=== PATIENT | male | born 2005 | race Two or more races ===

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

== ENCOUNTER 2024-04-24 09:32 | Emergency (ER) | payer MEDICAID ==
[2024-04-24 09:53] VITALS: O2SAT 100
--- NOTE | 2024-04-24 10:06 | ED Physician Documentation ---
History of Present Illness - Stated complaint Stated Complaint: CHEST PX,POSS SYNCOPAL EPISODE - Chief complaint Chief Complaint: Neuro - History obtained from History obtained from: Patient - History of Present Illness Timing: Today Pain level max: 5 Pain level now: 5 - Additonal information Additional information: Patient is a 19-year-old female who presents to the emergency department with anterior chest pain. Worse with movement, especially moving her arms. Better with remaining still. Has not taken anything for pain. She states that she went to work today, at work she had an intense sensation of pain when she was moving her arms, felt lightheaded, dizzy and her vision went "black". She did not fall. Did not strike her head. She states currently she is just having anterior chest wall pain. No leg pain, calf pain, recent surgery, history of blood clots. No change with eating or drinking. No recent illnesses. Review of Systems Constitutional: denies: Fever, Chills Cardiac: denies: Palpitations Respiratory: denies: Dyspnea, Cough GI: denies: Vomiting, Diarrhea Skin: denies: Rash Musculoskeletal: denies: Neck pain, Back pain Neurologic: denies: Focal weakness, Numbness, Headache PD PAST MEDICAL HISTORY - Past Medical History Past Medical History: No - Past Surgical History Past Surgical History: Yes General: Colonoscopy - Present Medications Home Medications: Ambulatory Orders Medication Instructions Recorded Confirmed No Known Home Medications 04/24/24 04/24/24 - Allergies Allergies/Adverse Reactions: Allergies Allergy/AdvReac Type Severity Reaction Status Date / Time No Known Drug Allergies Allergy Verified 04/24/24 09:45 - Social History Does the pt smoke?: No Smoking Status: Never smoker Does the pt drink ETOH?: No Does the pt have substance abuse?: No - Immunizations Immunizations are current?: Yes - POLST Patient has POLST: No PD ED PE NORMAL - Vitals Vital signs reviewed: Yes - General General: Alert and oriented X 3, No acute distress - HEENT HEENT: PERRL, Moist mucous membranes - Neck Neck: Supple, no meningeal sign, No bony TTP, No JVD, No bruit - Cardiac Cardiac: RRR, No murmur, Strong equal pulses - Respiratory Respiratory: No respiratory distress, Clear bilaterally - Abdomen Abdomen: Soft, Non tender, Non distended - Back Back: No CVA TTP, No spinal TTP - Derm Derm: Warm and dry - Extremities Extremities: No edema, No calf tenderness / cord - Neuro Neuro: Alert and oriented X 3 - Psych Psych: Normal mood, Normal affect - Free text exam Free text exam: Tender to palpation across the anterior chest wall, mainly at the costochondral Junction, reproduces her pain. No crepitus. No ecchymosis. Results - Vitals Vitals: Vital Signs - 24 hr 04/24/24 04/24/24 04/24/24 09:37 09:59 11:23 Temperature 36.1 C L 36.2 C L Heart Rate 64 74 82 Respiratory 20 25 H 16 Rate Blood Pressure 102/58 L 105/72 O2 Saturation 100 100 100 Oxygen O2 Source Room air - EKG (time done) 0949 EKG releavant findings:: EKG personally interpreted by author of this note. Relevant findings are: Rate: Rate (enter#) (59) Rhythm: NSR [place]: Normal Intervals: Normal [place] QRS: Normal Ischemia: Normal ST segments - Labs Labs: Laboratory Tests 04/24/24 04/24/24 04/24/24 09:43 10:00 10:00 WBC 5.8 RBC 4.58 Hgb 9.9 L Hct 33.3 L MCV 72.7 L MCH 21.6 L MCHC 29.7 L RDW 15.7 H Plt Count 347 MPV 9.0 Neut # (Auto) 3.6 Lymph # (Auto) 1.6 [place] # (Auto) 0.4 Eos # (Auto) 0.1 Baso # (Auto) 0.1 Absolute Nucleated RBC 0.00 Nucleated RBC % 0.0 Sodium 133 L Potassium 4.4 Chloride 104 Carbon Dioxide 26 Anion Gap 3.0 L BUN 12 Creatinine 0.6 Estimated GFR (MDRD) 127 Glucose 98 POC Whole Bld Glucose 79 Calcium 9.4 Total Bilirubin 0.7 AST 19 ALT 14 Alkaline Phosphatase 46 Troponin I High Sens < 2.3 L Total Protein 7.1 Albumin 4.5 Globulin 2.6 Albumin/Globulin Ratio 1.7 Lipase 18 Serum HCG, Qual 04/24/24 10:00 WBC RBC Hgb Hct MCV MCH MCHC RDW Plt Count MPV Neut # (Auto) Lymph # (Auto) [place] # (Auto) Eos # (Auto) Baso # (Auto) Absolute Nucleated RBC Nucleated RBC % Sodium Potassium Chloride Carbon Dioxide Anion Gap BUN Creatinine Estimated GFR (MDRD) Glucose POC Whole Bld Glucose Calcium Total Bilirubin AST ALT Alkaline Phosphatase Troponin I High Sens Total Protein Albumin Globulin Albumin/Globulin Ratio Lipase Serum HCG, Qual NEGATIVE - Rads (name of study) cxr Relevant Findings:: Final report received, See rad report PD Medical Decision Making - ED course Complexity details: reviewed results, re-evaluated patient, considered diffe rential (No ST elevation [place], no aortic dissection, no PE, no tension pneumothorax, no aortic aneurysm), d/w patient ED course: 19-year-old female with tenderness to palpation over the anterior chest wall consistent with costochondritis. Symptoms not consistent with PE, aortic dissection or ACS. No acute findings on EKG, chest x-ray. Negative troponin. Feels better after Toradol. Who will place on Motrin or Aleve at home for inflammation in the chest wall. Patient is well-appearing, nontoxic. Afebrile. No hypoxia. No respiratory distress. No wheezing. No stridor. Patient counseled regarding signs and symptoms for which I believe and urgent re- evaluation would be necessary. Patient with good understanding of and agreement to plan and is comfortable going home at this time This document was made in part using voice recognition software. While efforts are made to proofread this document, sound alike and grammatical errors may occur. Departure - Departure Disposition: 01 Home, Self Care Clinical Impression: Costochondritis, acute Chest pain Qualifiers: Chest pain type: unspecified Qualified Code(s): R07.9 - Chest pain, unspecified Condition: Good Instructions: ED Chest Pain Costochondritis Follow-Up: Risa Purcell PA-C [Primary Care Provider] - Comments: Please start taking Motrin or Aleve daily to help with the inflammation in your chest wall, this should improve over the next few days but may last for up to a week or 2. The Aleve would be taken twice a day, the Motrin would be taken every 6-8 hours. If you are not feeling better in 1 week, you should return for repeat evaluation or follow-up with your primary care provider. Your EKG, chest x-ray and laboratory testing did not show any acute abnormalities today. Please return sooner if you worsen. Forms: PCP List Discharge Date/Time: 04/24/24 11:26
[2024-04-24 10:13] LABS: BASOPHILS # (AUTO) 0.1 10^3/uL (0.0-0.1); BASOPHILS % (AUTO) 0.9 %; EOSINOPHILS # (AUTO) 0.1 10^3/uL (0.0-0.7); EOSINOPHILS % (AUTO) 0.9 %; HCT - HEMATOCRIT 33.3 % (37.0-47.0); HGB - HEMOGLOBIN 9.9 g/dL (12.0-16.0); LYMPHOCYTES # (AUTO) 1.6 10^3/uL (1.5-3.5); LYMPHOCYTES % (AUTO) 27.7 %; MEAN CORPUSCULAR HEMOGLOBIN 21.6 pg (27.0-31.0); MEAN CORPUSCULAR HGB CONC 29.7 g/dL (32.0-36.0); MEAN CORPUSCULAR VOLUME 72.7 fL (81.0-99.0); MONOCYTES # (AUTO) 0.4 10^3/uL (0.0-1.0); MONOCYTES % (AUTO) 7.3 %; NEUTROPHILS # (AUTO) 3.6 10^3/uL (1.5-6.6); NEUTROPHILS % (AUTO) 62.9 %; PLT - PLATELET COUNT 347 10^3/uL (130-450); RED BLOOD COUNT 4.58 10^6/uL (4.20-5.40); RED CELL DISTRIBUTION WIDTH 15.7 % (12.0-15.0); WHITE BLOOD COUNT 5.8 x10^3/uL (4.8-10.8)
[2024-04-24 10:32] LABS: TROPONIN I HIGH SENSITIVITY < 2.3 ng/L (2.3-14.8)
[2024-04-24 10:34] LABS: HCG,QUALITATIVE BLOOD NEGATIVE
[2024-04-24 10:36] LABS: ALBUMIN 4.5 g/dL (3.2-5.5); ALBUMIN/GLOBULIN RATIO 1.7 (1.0-2.2); ALKALINE PHOSPHATASE 46 IU/L (42-121); ALT ALANINE AMINOTRANSFERASE 14 IU/L (10-60); AST ASPARTATE AMINOTRANSFERASE 19 IU/L (10-42); BILIRUBIN,TOTAL 0.7 mg/dL (0.2-1.0); BUN - BLOOD UREA NITROGEN 12 mg/dL (6-20); CALCIUM 9.4 mg/dL (8.5-10.3); CARBON DIOXIDE - CO2 26 mmol/L (21-32); CHLORIDE 104 mmol/L (101-111); CREATININE 0.6 mg/dL (0.6-1.3); GFR - MDRD 127 (>89); GLUCOSE 98 mg/dL (74-104); LIPASE 18 U/L (11-82); POTASSIUM 4.4 mmol/L (3.5-4.5); SODIUM 133 mmol/L (135-145); TOTAL PROTEIN 7.1 g/dL (6.4-8.9)
--- NOTE | 2024-04-24 10:54 | XRAY Report ---
PROCEDURE: Chest 1V INDICATIONS: chest pain TECHNIQUE: One view of the chest was acquired. COMPARISON: None. FINDINGS: Surgical changes and devices: None. Lungs and pleura: No pleural effusions or pneumothorax. Lungs are clear. Mediastinum: Mediastinal contours appear normal. Heart size is normal. Bones and chest wall: No suspicious bony lesions. Overlying soft tissues appear unremarkable. IMPRESSION: No acute cardiopulmonary process. Reviewed by: Windy Bell MD, PhD on 04/24/2024 10:52 AM PDT Approved by: Windy Bell MD, PhD on 04/24/2024 10:52 AM PDT Station ID: [id number]
[2024-04-24] MEDS: KETOROLAC 30 MG/ML VIAL IVP STA (10:57)
[2024-04-24 11:38] VITALS: BP 105/72
== END 2024-04-24 11:26 | disposition home or self-care (01) ==
LOC: ED 09:32
DX: M94.0 Chondrocostal junction syndrome [Tietze] (principal)
CPT/HCPCS: 36415; 80053; 83690; 84484; 84703; 85025; 93005; 96374; 99284